=== PATIENT | female | born 1980 | race African-American/Black ===

== ENCOUNTER 2017-02-14 19:34 | Emergency (ER) | payer OTHER ==
[~2017-02-14] VITALS: Ht 165.1 cm; Wt 89.8 kg
[~2017-02-14 19:34] MED LIST: BACITRACIN15 GM TOPIC; BACTRIM-DS1 EA ORAL; BACTRIM-DS1 EA PO; CEPHALEXIN500 MG PO; CLINDAMYCIN HC150 MG PO; CYCLOBENZAPRINE10 MG ORAL; FLONASE ALLERG9.9 ML NS; IBUPROFEN200 M2 ORAL; IBUPROFEN600 MG ORAL; IBUPROFEN800 MG ORAL; KEFLEX500 MG ORAL; MECLIZINE HCL12.5 MG ORAL; MEDROL DOSEPAK4 MG ORAL; NKM; TAMIFLU75 MG ORAL; VICODIN 5-5001 EACH PO
[2017-02-14 20:15] VITALS: BP 147/82
[2017-02-14] MEDS ORDERED: IBUPROFEN600 MG ORAL (20:50)
--- NOTE | 2017-02-14 20:54 | Emergency Room Report ---
History of Present Illness General Chief Complaint: Lower Extremity Injury Source: Patient Present Illness HPI Patient present with complaints of right foot pain injury occurred earlier this afternoon Patient reports pain to the lateral foot Falling off several stairs Denies any ankle pain denies any knee pain Pain to the foot is 6/10 worse with touch Denies any neuropathy Denies any open cuts or wounds Allergies: Coded Allergies: No Known Allergies (Unverified , 01/27/13) Patient History Past Medical History: see triage record Pertinent Family History: none Last Menstrual Period: 02/03/2017 Now: No : 2 Para: 2 Reviewed Nursing Documentation: PMH: Agreed, PSxH: Agreed Nursing Documentation-PMH Past Medical History: No Stated History Review of Systems All Other Systems: negative except mentioned in HPI Physical Exam Vital Signs Date Time Temp Pulse Resp B/P Pulse Ox O2 Delivery O2 Flow Rate FiO2 02/14/17 20:06 98.4 85 16 158/79 100 Room Air Sp02 EP Interpretation: reviewed, normal General Appearance: no apparent distress Head: normocephalic, atraumatic Eyes: bilateral eye EOMI, bilateral eye PERRL ENT: hearing grossly normal, normal pharynx Neck: full range of motion, supple Cardiovascular #1: regular rate, rhythm Musculoskeletal: other - Tender on palpation of the dorsal foot on the lateral aspect, tender all the way down to the proximal toes, and minimal swelling is noted in that region Neurologic: alert, oriented x3 Skin: other - as above Lymphatic: no adenopathy Medical Decision Making Diagnostic Impression: Primary Impression: foot sprain ER Course Extremities reveal any obvious acute pathology Patient was given pain medications here and is stable for close outpatient followup Other X-Ray Diagnostic Results Other X-Ray Diagnostic Results : EP Interpretation: Yes Findings: no fractures, no dislocation, no soft tissue swelling Number of Views: 3 - right foot Last Vital Signs Date Time Temp Pulse Resp B/P Pulse Ox O2 Delivery O2 Flow Rate FiO2 02/14/17 20:06 98.4 85 16 158/79 100 Room Air Status: improved Disposition: HOME, SELF-CARE Condition: Improved Scripts Ibuprofen* (MOTRIN*) 600 Mg Tablet 600 MG ORAL Q8H Y for For Pain, #20 TAB 0 Refills Prov: BEATA OLSEN D.O. 02/14/17 Patient Instructions: Foot Sprain Additional Instructions: Patient is provided with the discharge instructions notified to follow up with primary doctor in the next 2-3 days otherwise return to the er with any worsening symptoms. Please note that this report is being documented using [employer] technology. This can lead to erroneous entry secondary to incorrect interpretation by the dictating instrument. BEATA OLSEN D.O. Feb 14, 2017 20:54
[2017-02-14 21:15] VITALS: BP 147/82
--- NOTE | 2017-02-15 10:16 | Diagnostic Imaging Report ---
Indications: Right foot pain Technique: 3 views of the right foot Findings: Comparison: None. No fracture, dislocation, lytic destruction, periosteal reaction, surrounding soft tissue swelling, or other acute changes are demonstrated. No deformity, alignment abnormality, arthritic change, soft tissue calcification, or other chronic changes are demonstrated. IMPRESSION: Negative right foot series.
== END 2017-02-14 21:15 | disposition home or self-care (01) ==
LOC: EMR 19:58
DX: S93.601A Unspecified sprain of right foot, initial encounter (principal); W10.9XXA Fall (on) (from) unspecified stairs and steps, initial encounter; Y93.9 Activity, unspecified; Y92.9 Unspecified place or not applicable
CPT/HCPCS: 99283

== ENCOUNTER 2017-10-21 17:34 | Emergency (ER) | payer MEDICAID, OTHER ==
[~2017-10-21] VITALS: Ht 152.4 cm; Wt 90.7 kg
--- NOTE | 2017-10-21 18:02 | Emergency Room Report ---
History of Present Illness General Chief Complaint: Lower Back Pain or Injury Source: Patient Present Illness HPI 37-year-old female presents to the emergency department complaining of acute onset low back pain that is 10/10 in severity and constant x one day. Patient also reports positive at home urine test. Patient denies abdominal pain, nausea, vomiting, dysuria, hematuria, vaginal discharge, dyspareunia, swollen tender lymph nodes, joint pain or swollen tender lymph nodes. Patient states the pain is exacerbated upon bending forward in addition to some sudden movements. Patient reports sharp pain that resolves with returning back to original position. denies trauma or fall, neck pain or stiffness. Patient denies strenuous activity she states that she has begun sleeping on her side when she is normally a belly sleep better. Denies fevers, chills, significant changes in weight, recent spinal procedures. she denies urinary retention. denies abdominal pain, vaginal discharge or uterine cramping.denies hx of STD. Denies numbness tingling or loss of sensation or gross motor movements of the extremities, incontinence of bowel or bladder. Denies CP, Palpitations, LOC, AMS , dizziness, Changes in Vision, Sensation, paresthesias, or a sudden severe headache. Allergies: Coded Allergies: No Known Allergies (Unverified , 01/27/13) Patient History Past Medical History: see triage record Past Surgical History: none Pertinent Family History: none Last Menstrual Period: 09/08/17 Now: Yes - positive on urine test Reviewed Nursing Documentation: PMH: Agreed, PSxH: Agreed Nursing Documentation-PMH Past Medical History: No Stated History Review of Systems All Other Systems: negative except mentioned in HPI Physical Exam Vital Signs Date Time Temp Pulse Resp B/P (MAP) Pulse Ox O2 Delivery O2 Flow Rate FiO2 10/21/17 17:57 97.9 93 18 124/80 100 Room Air Sp02 EP Interpretation: reviewed, normal General Appearance: no apparent distress, alert, GCS 15, non-toxic Head: normocephalic, atraumatic Eyes: right eye EOMI, bilateral eye normal inspection, bilateral eye PERRL ENT: hearing grossly normal, normal voice Neck: full range of motion Respiratory: lungs clear, normal breath sounds, speaking full sentences Cardiovascular #1: regular rate, rhythm Gastrointestinal: normal bowel sounds, non tender, soft, no guarding Rectal: deferred Genitourinary: normal inspection, no CVA tenderness Musculoskeletal: back normal, gait/station normal, normal range of motion, tender - bilateral paraspinal TTP in the lumbar area, no midline ttp, no CVA, FROM with exacerbation of pain with bending forward 30* Neurologic: alert, oriented x3, responsive, motor strength/tone normal, sensory intact, normal gait, speech normal Skin: normal color, no rash, warm/dry, well hydrated Medical Decision Making PA Attestation Dr. Luna is my supervising Physician whom patient management has been discussed with. Diagnostic Impression: Primary Impression: Acute lumbar back pain Qualified Codes: M54.5 - Low back pain Additional Impressions: Positive test Positive home test ER Course 37-year-old female presents to the emergency department complaining of acute onset low back pain that is 10/10 in severity and constant x one day. Patient also reports positive at home urine test. Patient denies abdominal pain, nausea, vomiting, dysuria, hematuria, vaginal discharge, dyspareunia, swollen tender lymph nodes, joint pain or swollen tender lymph nodes. Patient states the pain is exacerbated upon bending forward in addition to some sudden movements. Patient reports sharp pain that resolves with returning back to original position. denies trauma or fall, neck pain or stiffness. Patient denies strenuous activity she states that she has begun sleeping on her side when she is normally a belly sleep better. Denies fevers, chills, significant changes in weight, recent spinal procedures. she denies urinary retention. denies abdominal pain, vaginal discharge or uterine cramping.denies hx of STD. Denies numbness tingling or loss of sensation or gross motor movements of the extremities, incontinence of bowel or bladder. Denies CP, Palpitations, LOC, AMS , dizziness, Changes in Vision, Sensation, paresthesias, or a sudden severe headache. Ddx considered but are not limited to muscle strain, back pain, kidney stone, pyelonephritis, UTI, obstruction PID, ectopic, just to name a few. Vital signs: are WNL, pt. is afebrile H&PE are most consistent with acute lumbar back pain most likely strain due to reproducibility , will r/o UTI ORDERS: -UA: Unremarkable -Urine Hcg: Positive ED INTERVENTIONS: -- Tylenol PO DISCHARGE: At this time pt. is stable for d/c to home. Will provide printed patient care instructions, and any necessary prescriptions. Care plan and follow up instructions have been discussed with the patient prior to discharge. -will d/c home with Lidoderm patches and Tylenol. Pt. to follow up with OBGYN as outpatient. D/w pt. to return promptly to the ED with worsening or new symptoms. Labs Test 10/21/17 18:09 Urine Color Yellow Urine Appearance Clear Urine pH 8 (4.5-8.0) Urine Specific [place] 1.015 (1.005-1.035) Urine Protein Negative (NEGATIVE) Urine Glucose (UA) Negative (NEGATIVE) Urine Ketones Negative (NEGATIVE) Urine Occult Blood 1+ (NEGATIVE) Urine Nitrite Negative (NEGATIVE) Urine Bilirubin Negative (NEGATIVE) Urine Urobilinogen 4 MG/DL (0.0-1.0) Urine Leukocyte Esterase 1+ (NEGATIVE) Urine RBC 5-10 /HPF (0 - 2) Urine WBC 0-2 /HPF (0 - 2) Urine Squamous Epithelial Cells Occasional /LPF Urine Bacteria None /HPF (NONE) Urine HCG, Qualitative Positive Last Vital Signs Date Time Temp Pulse Resp B/P (MAP) Pulse Ox O2 Delivery O2 Flow Rate FiO2 10/21/17 17:57 97.9 93 18 124/80 100 Room Air Disposition: HOME, SELF-CARE Condition: Stable Scripts Vit #91/Fe Fum/Fa/Dha ( + DHA COMBO PACK) 1 Each Combo..pkg 1 EACH PO DAILY for 30 Days, #1 PACK Prov: Eva Alcala.A. 10/21/17 Lidocaine (Lidoderm) 1 Each Adh..patch 1 PATCH TOPIC DAILY, #20 PATCH 0 Refills Patch(es) may remain in place for up to 12 hours in any 24-hour period. Prov: Eva Alcala.A. 10/21/17 Acetaminophen* (TYLENOL EXTRA STRENGTH*) 500 Mg Tablet 500 MG ORAL Q6H, #20 TAB 0 Refills Prov: Eva Alcala.James. 10/21/17 Patient Instructions: Back Pain in Additional Instructions: Take medications as directed. Follow up with a OBGYN within 3 days, even if your symptoms have resolved. Return sooner to ED if new symptoms occur, or current symptoms become worse. - Please note that this Emergency Department Report was dictated using [employer] professor technology software, occasionally this can lead to erroneous entry secondary to interpretation by the dictation equipment. Eva Alcala Oct 21, 2017 18:02
[2017-10-21 18:38] VITALS: BP 120/76
[2017-10-21 19:25] LABS: APPEARANCE,URINE CLEAR; KETONES,URINE NEGATIVE (NEGATIVE); LEUKOCYTE ESTERASE ,URINE 1+ (NEGATIVE); NITRITE,URINE NEGATIVE (NEGATIVE); PH,URINE 8 (4.5-8.0); PROTEIN,URINE NEGATIVE (NEGATIVE); UROBILINOGEN,URINE 4 MG/DL (0.0-1.0)
[2017-10-21 19:32] LABS: SQUAMOUS EPITHELIAL CELL,UR OCCASIONAL /LPF (NONE/OCC); WBC,URINE 0-2 /HPF (0 - 2)
[2017-10-21] MEDS ORDERED: PRENATAL + DHA1 EAC1 PO (19:37)
[2017-10-21] MEDS ORDERED: LIDODERM700 M1 TOPIC (19:37)
[2017-10-21] MEDS ORDERED: TYLENOL EXTRA500 MG ORAL (19:37)
[2017-10-21 19:45] VITALS: BP 126/81
[2017-10-21 19:47] VITALS: BP 126/81
== END 2017-10-21 19:47 | disposition home or self-care (01) ==
LOC: EMR 18:17
DX: M54.5 Low back pain (principal); Z32.01 Encounter for pregnancy test, result positive
CPT/HCPCS: 81003; 81025; 99284

== ENCOUNTER 2017-11-07 17:24 | Emergency (ER) | payer MEDICAID, OTHER ==
[~2017-11-07] VITALS: Ht 165.1 cm; Wt 95.3 kg
[~2017-11-07 17:24] MED LIST changes: +LIDODERM700 M1 TOPIC; +PRENATAL + DHA1 EAC1 PO; +TYLENOL EXTRA500 MG ORAL
--- NOTE | 2017-11-07 18:20 | Emergency Room Report ---
History of Present Illness General Chief Complaint: Vomiting Source: Patient Present Illness HPI 37-year-old female, , 8 weeks , presenting with nausea and one episode vomiting. Patient states that she has been nauseous during this . Denies any fever or chills. Had one episode of vomiting with specks of blood today. No diarrhea, no constipation, no black stool. Patient is not on any blood thinners. Denies any abdominal pain or cramping. No abnormal vaginal discharge. No vaginal bleeding. No dysuria or hematuria Allergies: Coded Allergies: No Known Allergies (Unverified , 01/27/13) Patient History Past Medical History: see triage record Past Surgical History: none Pertinent Family History: none Last Menstrual Period: 2 months Now: Yes Reviewed Nursing Documentation: PMH: Agreed, PSxH: Agreed Nursing Documentation-PMH Past Medical History: No Stated History Review of Systems All Other Systems: negative except mentioned in HPI Physical Exam Vital Signs Date Time Temp Pulse Resp B/P (MAP) Pulse Ox O2 Delivery O2 Flow Rate FiO2 11/07/17 17:29 98.4 88 18 135/89 98 Room Air Sp02 EP Interpretation: reviewed, normal General Appearance: normal inspection, well appearing, no apparent distress, alert, GCS 15, non-toxic Head: normocephalic, atraumatic Eyes: bilateral eye normal inspection, bilateral eye PERRL, bilateral eye EOMI ENT: normal ENT inspection, normal pharynx, normal voice, moist mucus membranes Neck: normal inspection, full range of motion, supple Respiratory: normal inspection, lungs clear, normal breath sounds, no respiratory distress, no retraction, no wheezing, speaking full sentences, chest symmetrical Cardiovascular #1: normal inspection, regular rate, rhythm, no edema, normal capillary refill Cardiovascular #2: 2+ radial (R), 2+ radial (L) Gastrointestinal: normal inspection, non tender, soft, non-distended, no guarding Musculoskeletal: normal inspection, back normal, normal range of motion, non- tender Neurologic: normal inspection, alert, oriented x3, responsive, motor strength/ tone normal, sensory intact, normal gait, speech normal Psychiatric: normal inspection, judgement/insight normal, memory normal Skin: normal inspection, normal color, no rash, warm/dry, well hydrated, normal turgor Medical Decision Making Diagnostic Impression: Primary Impression: Vomiting ER Course 37-year-old female with one episode of vomiting with specks of blood Differential Diagnosis: Gastritis, gastroenteritis, nausea and vomiting related to , patient only with one episode of vomiting Patient does not have a tender abdomen at this time Plan: Basic labs, ua, ekg Pepcid, maalox, pain control, IVF ER course: Patient has remained stable during ED stay. Tolerating PO no further episodes vomiting labs unremarkable appears well Disposition: Patient is to be discharged to home. Patient is instructed to follow up with their primary care doctor within 5 days. OBGYN in 1 week Also if needs to see a housekeeping cleaner in 1 week Strict return precautions discussed with patient such as fever, chills, abdominal pain, nausea, vomiting, black or bloody stools, which may indicate severe illness. Patient verbalizes understanding and agrees with plan. Please note that this Emergency Department Report was dictated using [employer] server technology software, occasionally this can lead to erroneous entry secondary to interpretation by the dictation equipment Laboratory Tests Test 11/07/17 18:33 White Blood Count 9.3 K/UL (4.8-10.8) Red Blood Count 4.38 M/UL (4.20-5.40) Hemoglobin 11.0 G/DL (12.0-16.0) L Hematocrit 36.7 % (37.0-47.0) L Mean Corpuscular Volume 84 FL (80-99) Mean Corpuscular Hemoglobin 25.1 PG (27.0-31.0) L Mean Corpuscular Hemoglobin Concent 29.9 G/DL (32.0-36.0) L Red Cell Distribution Width 13.2 % (11.6-14.8) Platelet Count 229 K/UL (150-450) Mean Platelet Volume 6.6 FL (6.5-10.1) Neutrophils (%) (Auto) 69.2 % (45.0-75.0) Lymphocytes (%) (Auto) 20.3 % (20.0-45.0) Monocytes (%) (Auto) 7.8 % (1.0-10.0) Eosinophils (%) (Auto) 0.8 % (0.0-3.0) Basophils (%) (Auto) 1.8 % (0.0-2.0) Prothrombin Time 10.0 SEC (9.30-11.50) Prothrombin Time INR 1.0 (0.9-1.1) PTT 24 SEC (23-33) Urine Color Yellow Urine Appearance Clear Urine pH 6.5 (4.5-8.0) Urine Specific [place] 1.015 (1.005-1.035) Urine Protein 1+ (NEGATIVE) H Urine Glucose (UA) Negative (NEGATIVE) Urine Ketones Negative (NEGATIVE) Urine Occult Blood 2+ (NEGATIVE) H Urine Nitrite Negative (NEGATIVE) Urine Bilirubin Negative (NEGATIVE) Urine Urobilinogen 1 MG/DL (0.0-1.0) H Urine Leukocyte Esterase 1+ (NEGATIVE) H Urine RBC 5-10 /HPF (0 - 2) H Urine WBC 2-4 /HPF (0 - 2) Urine Squamous Epithelial Cells Few /LPF (NONE/OCC) Urine Bacteria Few /HPF (NONE) Urine HCG, Qualitative Negative Sodium Level 137 MMOL/L (136-145) Potassium Level 3.8 MMOL/L (3.5-5.1) Chloride Level 105 MMOL/L (98-107) Carbon Dioxide Level 29 MMOL/L (21-32) Anion Gap 3 mmol/L (5-15) L Blood Urea Nitrogen 10 mg/dL (7-18) Creatinine 0.6 MG/DL (0.55-1.30) Estimate Glomerular Filtration Rate > 60 mL/min (>60) Glucose Level 97 MG/DL (74-106) Calcium Level 8.7 MG/DL (8.5-10.1) Total Bilirubin 0.1 MG/DL (0.2-1.0) L Aspartate Amino Transferase (AST) 16 U/L (15-37) Alanine Aminotransferase (ALT) 29 U/L (12-78) Alkaline Phosphatase 34 U/L (46-116) L Total Protein 6.9 G/DL (6.4-8.2) Albumin 3.2 G/DL (3.4-5.0) L Globulin 3.7 g/dL Albumin/Globulin Ratio 0.9 (1.0-2.7) L Lipase 90 U/L (73-393) Human Chorionic Gonadotropin, Quant Pending Last Vital Signs Date Time Temp Pulse Resp B/P (MAP) Pulse Ox O2 Delivery O2 Flow Rate FiO2 11/07/17 17:29 98.4 88 18 135/89 98 Room Air Disposition: HOME, SELF-CARE Condition: Improved Referrals: [facility],REFERRING (PCP) Juan M Luna M.D. Nov 07, 2017 18:20
[2017-11-07 19:03] LABS: BASOPHILS % (AUTO) 1.8 % (0.0-2.0); EOSINOPHILS % (AUTO) 0.8 % (0.0-3.0); LYMPHOCYTES % (AUTO) 20.3 % (20.0-45.0); MEAN CORPUSCULAR HEMOGLOBIN 25.1 PG (27.0-31.0); MEAN CORPUSCULAR HGB CONC 29.9 G/DL (32.0-36.0); MEAN CORPUSCULAR VOLUME 84 FL (80-99); MEAN PLATELET VOLUME 6.6 FL (6.5-10.1); MONOCYTES % (AUTO) 7.8 % (1.0-10.0); NEUTROPHILS % (AUTO) 69.2 % (45.0-75.0); PLATELET COUNT 229 K/UL (150-450); RED BLOOD COUNT 4.38 M/UL (4.20-5.40); RED CELL DISTRIBUTION WIDTH 13.2 % (11.6-14.8); WHITE BLOOD COUNT 9.3 K/UL (4.8-10.8)
[2017-11-07 19:07] LABS: APPEARANCE,URINE CLEAR; KETONES,URINE NEGATIVE (NEGATIVE); LEUKOCYTE ESTERASE ,URINE 1+ (NEGATIVE); NITRITE,URINE NEGATIVE (NEGATIVE); PH,URINE 6.5 (4.5-8.0); PROTEIN,URINE 1+ (NEGATIVE); UROBILINOGEN,URINE 1 MG/DL (0.0-1.0)
[2017-11-07 19:16] LABS: ANION GAP 3 mmol/L (5-15); CALCIUM 8.7 MG/DL (8.5-10.1); CARBON DIOXIDE 29 MMOL/L (21-32); CHLORIDE 105 MMOL/L (98-107); CREATININE 0.6 MG/DL (0.55-1.30); GLOMERULAR FILTRATION RATE > 60 mL/min (>60); POTASSIUM 3.8 MMOL/L (3.5-5.1); SODIUM 137 MMOL/L (136-145)
[2017-11-07 19:19] LABS: ALANINE AMINOTRANSFERASE 29 U/L (12-78); ALBUMIN/GLOBULIN RATIO 0.9 (1.0-2.7); ASPARTATE AMINO TRANSFERASE 16 U/L (15-37); LIPASE 90 U/L (73-393); TOTAL PROTEIN 6.9 G/DL (6.4-8.2)
[2017-11-07 19:22] LABS: BACTERIA,URINE FEW /HPF; SQUAMOUS EPITHELIAL CELL,UR FEW /LPF (NONE/OCC)
[2017-11-07 19:36] VITALS: BP 135/89
== END 2017-11-07 19:39 | disposition home or self-care (01) ==
LOC: EMR 17:55
DX: O21.9 Vomiting of pregnancy, unspecified (principal); Z3A.08 8 weeks gestation of pregnancy; O09.521 Supervision of elderly multigravida, first trimester
CPT/HCPCS: 36415; 80053; 81003; 81025; 83690; 84702; 85025; 85610; 85730; 96361; 96374; 99284; J2405